=== PATIENT | male | born 1965 | race Caucasian/White ===

== ENCOUNTER → 2017-02-22 | Outpatient (CLI) | payer BC ==
[~2017-02-22] VITALS: Ht 175.3 cm; Wt 113.7 kg
[~2017-02-22] MED LIST: CLR10 PO; FLUO0.0543 TOP; FLUT0.0529 NAE; HYDR2.5C37 TOP; PRLSRUNK PO; TNR50 PO; VTMD1000 PO; WLLSR150 PO; [UNRECOGNIZED DRUG - OTHER] PO
[2017-02-22 12:24] VITALS: BP 153/94; PULSE 72; Ht 175.3 cm; Wt 113.7 kg
== END | disposition home or self-care (01) ==
LOC: C.NEUR 11:53
PROVIDERS: ATTEND Internal Medicine Pulmonary Disease
DX: G47.33 Obstructive sleep apnea (adult) (pediatric) (principal); J30.9 Allergic rhinitis, unspecified; I12.9 Hypertensive chronic kidney disease with stage 1 through stage 4 chronic kidney disease, or unspecified chronic kidney disease; N18.3 Chronic kidney disease, stage 3 (moderate); E78.5 Hyperlipidemia, unspecified; E55.9 Vitamin D deficiency, unspecified; Z82.49 Family history of ischemic heart disease and other diseases of the circulatory system; Z80.8 Family history of malignant neoplasm of other organs or systems

== ENCOUNTER → 2017-05-25 | Outpatient (CLI) | payer BC ==
--- NOTE | 2017-05-25 09:42 | DIAGNOSTIC IMAGING REPORT ---
R FOOT MIN 3 VIEWS ROUTINE CLINICAL HISTORY: M79.671 RIGHT FOOT PAIN. TRAUMA. COMPARISON: None. DISCUSSION: There is a tiny plantar calcaneal spur. The bony mineralization appears normal. There is minimal irregularity of the distal aspect of the cuboid. A nondisplaced fracture cannot be excluded. If further evaluation is desired, a CT scan or MRI could be obtained in follow-up. IMPRESSION: Projectional artifact versus nondisplaced fracture of the distal cuboid. Electronically signed by: Erik Mehta M.D. 05/25/2017 9:41 AM Dictated Date/Time: 05/25/2017 9:39 AM
== END | disposition home or self-care (01) ==
LOC: C.RAD1850 09:23
PROVIDERS: ATTEND Family Medicine
DX: M79.671 Pain in right foot (principal)